=== PATIENT | male | born 1945 | race Caucasian/White ===

== ENCOUNTER 2016-11-01 17:16 | Outpatient (CLI) | payer OTHER, MEDICARE | END 2016-11-01 17:17 | disposition critical access hospital (66) | DX: S01.01XA Laceration without foreign body of scalp, initial encounter (principal); M54.2 Cervicalgia; M54.5 Low back pain; W18.39XA Other fall on same level, initial encounter; Y93.73 Activity, racquet and hand sports; Y92.213 High school as the place of occurrence of the external cause | CPT/HCPCS: A0425; A0429 ==

== ENCOUNTER 2016-11-01 17:32 | Inpatient (IN) | payer MEDICARE, OTHER ==
[2016-11-01] MEDS ORDERED: BUFFERED LIDOCAINE 10 ML SYRINGE SUBQ STA (17:40)
[2016-11-01] MEDS ORDERED: diazePAM INJ 5 MG/ML SYRINGE IM STA (17:40)
--- NOTE | 2016-11-01 17:48 | ED Physician Documentation ---
PD HPI HEAD INJURY - Stated complaint Stated Complaint: HEAD INJ - Chief complaint Chief Complaint: Laceration - History obtained from History obtained from: Patient - History of Present Illness Mechanism of head injury: Fell (He was playing tennis today, his hamstring locked up on him which has been an ongoing issue, and he fell hitting his occiput on a chain link fence with a large laceration there and complains of neck and upper back pain. No other injuries. Tetanus is up-to-date. No loss of consciousness. No anticoagulants.) Review of Systems Ten Systems: 10 systems reviewed and negative Constitutional: denies: Fever, Chills Cardiac: denies: Chest pain / pressure, Palpitations Respiratory: denies: Dyspnea, Cough GI: denies: Abdominal Pain PD PAST MEDICAL HISTORY - Present Medications Home Medications: Ambulatory Orders Medication Instructions Recorded Confirmed Simvastatin 10 mg PO DAILY 11/01/16 11/01/16 raNITIdine [Zantac] 150 mg PO DAILY 11/01/16 11/01/16 traZODone [Desyrel] 150 mg PO DAILY 11/01/16 11/01/16 - Allergies Allergies/Adverse Reactions: Allergies Allergy/AdvReac Type Severity Reaction Status Date / Time No Known Drug Allergies Allergy Verified 11/01/16 17:44 PD ED PE NORMAL - Vitals Vital signs reviewed: Yes - General General: Alert and oriented X 3, No acute distress - HEENT HEENT: PERRL, EOMI, Other (Large occipital laceration, incompletely evaluated on initial evaluation because of C-spine precautions) - Neck Neck: No bony TTP - Cardiac Cardiac: RRR, No murmur - Respiratory Respiratory: No respiratory distress, Clear bilaterally - Abdomen Abdomen: Soft, Non tender - Back Back: No CVA TTP, Other (Some upper T-spine tenderness) - Derm Derm: Normal color, Warm and dry - Extremities Extremities: Other (Tenderness of the left hamstring but good range of motion, NVI) - Neuro Neuro: Alert and oriented X 3, Normal speech - Psych Psych: Normal mood, Normal affect Results - Vitals Vitals: Vital Signs - 24 hr 11/01/16 11/01/16 17:37 20:23 Temperature 36.6 C Heart Rate 64 67 Respiratory 20 18 Rate Blood Pressure 154/81 H 126/73 O2 Saturation 98 96 Oxygen O2 Source Room air - Labs Labs: Laboratory Tests 11/01/16 11/01/16 11/01/16 20:20 20:20 20:20 WBC 13.8 H RBC 4.73 Hgb 13.7 L Hct 40.4 L MCV 85.4 MCH 29.0 MCHC 34.0 RDW 13.2 Plt Count 177 MPV 8.5 Neut # 11.1 H Lymph # 1.3 L [place] # 1.4 H Eos # 0.0 Baso # 0.0 Absolute Nucleated RBC 0.00 Nucleated RBCs 0.0 PT 11.4 INR 1.0 Sodium 142 Potassium 3.7 Chloride 111 Carbon Dioxide 23 Anion Gap 8.0 BUN 22 H Creatinine 1.0 Estimated GFR (MDRD) 74 L Glucose 111 H Calcium 9.1 Total Bilirubin 0.8 AST 33 ALT 35 Alkaline Phosphatase 134 H Total Protein 7.0 Albumin 4.2 Globulin 2.8 Albumin/Globulin Ratio 1.5 Lipase 26 - Rads (name of study) CT head, C-spine, thoracic Spine Radiology: EMP read contemporaneously (Head shows chronic white matter changes, no intracranial hemorrhage. Cervical spine was negative. He does have acute T2 and T3 compression fractures and an acute left posterior medial rib fracture with mild displacement, some pulmonary nodules and follow-up was advised. He does have also left posterior medial second and third rib fractures and us small left apical hemothorax.) Procedures - Laceration (location) Occipital scalp Length in cm: 12 Wound type: Stellate, Irregular, Flap, Into subcut fat Anesthesia: Lidocaine 1%, With bicarb Wound Preparation: Irrigated copiously NS Skin layer closure: [place] Other: Tetanus UTD Complexity: Simple PD MEDICAL DECISION MAKING - ED course ED course: 70-year-old gentleman after ground-level fall with multiple injuries including to thoracic compression fractures, multiple rib fractures, and a large occipital scalp laceration. Initially he very much wanted to go home, but was unable to ambulate and it was difficult to control his pain. Spoke with Dr. Josef Brunson, she is the general surgeon but we both agree there is no general surgical issue, but since its trauma she is available if needed. Spoke with Dr. Alba for observation at 8:30 PM Departure - Departure Disposition: ED Place in Observation Clinical Impression: Compression fx, thoracic spine Qualifiers: Encounter type: initial encounter Fracture type: closed Qualified Code(s): S22.000A - Wedge compression fracture of unspecified thoracic vertebra, initial encounter for closed fracture Multiple rib fractures Qualifiers: Encounter type: initial encounter Fracture type: closed Laterality: bilateral Qualified Code(s): S22.43XA - Multiple fractures of ribs, bilateral, initial encounter for closed fracture Occipital scalp laceration Qualifiers: Encounter type: initial encounter Qualified Code(s): S01.01XA - Laceration without foreign body of scalp, initial encounter Head injury Qualifiers: Encounter type: initial encounter Qualified Code(s): S09.90XA - Unspecified injury of head, initial encounter Condition: Good Record reviewed to determine appropriate education?: Yes Discharge Date/Time: 11/01/16 21:39
[2016-11-01] MEDS ORDERED: LORazepam 2 MG/ML SYRINGE ONE (17:58)
[2016-11-01] MEDS ORDERED: BUFFERED LIDOCAINE 10 ML SYRINGE ONE (17:58)
[2016-11-01] MEDS ORDERED: diazePAM INJ 5 MG/ML SYRINGE ONE (18:07)
--- NOTE | 2016-11-01 18:51 | CT Report ---
EXAM: CT THORACIC SPINE WITHOUT CONTRAST EXAM DATE: 11/01/2016 06:18 PM. CLINICAL HISTORY: Back pain after fall COMPARISONS: None. TECHNIQUE: Thin-section axial images were acquired of the thoracic spine from C7 to L1 without contra st. Post-processing: Coronal and sagittal reformats. Other: None. In accordance with CT protocol optimization, one or more of the following dose reduction techniques w ere utilized for this exam: automated exposure control, adjustment of mA and/or KV based on patient s ize, or use of iterative reconstructive technique. FINDINGS: Alignment: No spondylolisthesis. Bones: Acute T2 and T3 compression fractures involving the superior endplate anterior columns with mi ld compression. Acute left posterior medial first rib fracture, mildly displaced. Acute left posterio r medial second and third rib fractures extending into the costovertebral joints. Small left apex hem othorax associated with the first rib fracture. Minimal biapical paraseptal emphysema, right greater than left. Mild to moderate degenerative disk disease more moderate at the mid and lower levels. Moderate to lar ge osteophytes at the mid and lower thoracic spine. 4 mm right apex pulmonary nodule. More inferior to this is another pulmonary nodule measuring 4 mm in the right upper lobe. IMPRESSION: 1. Acute T2 and T3 compression fractures involving the superior endplate anterior columns with mild c ompression. Acute left posterior medial first rib fracture, mildly displaced. Acute left posterior me dial second and third rib fractures extending into the costovertebral joints. Small left apex hemotho rax associated with the first rib fracture. 2. Couple of tiny right upper lobe pulmonary nodules measuring 4 mm. Recommend a one-year follow-up c hest CT to confirm stability. Otherwise, as above. [facility] Referring Provider Line: [phone] SITE ID: [id number]
--- NOTE | 2016-11-01 18:57 | CT Preliminary Report ---
Exam: CT Cervical Spine W/O IMPRESSION: 1. No evidence for acute fracture in the cervical spine. 2. Mild to moderate degenerative changes. 3. See the abnormal findings in the CT thoracic spine report [facility] SITE ID: [id number]
--- NOTE | 2016-11-01 19:00 | CT Report ---
EXAM: CT CERVICAL SPINE WITHOUT CONTRAST DATE: 11/01/2016 06:09 PM HISTORY: Neck pain after fall. COMPARISONS: None. TECHNIQUE: Thin-section axial images were acquired of the cervical spine without contrast. Post-proce ssing: Coronal and sagittal reformats. Other: None. In accordance with CT protocol optimization, one or more of the following dose reduction techniques w ere utilized for this exam: automated exposure control, adjustment of mA and/or KV based on patient s ize, or use of iterative reconstructive technique. FINDINGS: Alignment: No spondylolisthesis. Mild leftward curve in the cervical spine. Bones: No evidence for acute fracture in the cervical spine. Mild T7 anterior compression deformity a ppears chronic. Interspace Levels/Facets: Mild to moderate degenerative disk disease, most severe at C5-C6 with moder ate disk height loss and osteophytes. Mild to moderate diffuse bilateral facet arthropathy. No acute soft tissue findings IMPRESSION: 1. No evidence for acute fracture in the cervical spine. 2. Mild to moderate degenerative changes. 3. See the abnormal findings in the CT thoracic spine report [facility] Referring Provider Line: [phone] SITE ID: [id number]
--- NOTE | 2016-11-01 19:00 | CT Preliminary Report ---
Exam: CT Head W/O IMPRESSION: 1. No definite acute infarct, intracranial hemorrhage, mass, or hydrocephalus. 2. Mild white matter changes that are age-indeterminate but appear chronic. Findings may represent se quela of chronic small vessel ischemic disease. If there is clinical concern for acute stroke or clin ical symptoms persist an MR brain without contrast can be considered to evaluate for smaller subtle i nfarct. 3. Small to moderate left parietal scalp contusion and laceration with no extension to the calvarium. No calvarial fracture seen. [facility] SITE ID: [id number]
--- NOTE | 2016-11-01 19:03 | CT Report ---
EXAM: CT HEAD EXAM DATE: 11/01/2016 06:05 PM. CLINICAL HISTORY: Head inj. COMPARISON: None. TECHNIQUE: Multiaxial CT images were obtained from the foramen magnum to the vertex. IV contrast: Non e. Reformats: Coronal. In accordance with CT protocol optimization, one or more of the following dose reduction techniques w ere utilized for this exam: automated exposure control, adjustment of mA and/or KV based on patient s ize, or use of iterative reconstructive technique. FINDINGS: Parenchyma: No definite acute parenchymal hemorrhage, mass, or midline shift. There is mild bilateral areas of white matter hepatic attenuation seen that are age-indeterminate but appear chronic. Extraaxial Spaces: Normal for age. No subdural or epidural collections identified. Ventricles: Normal in size and position. Sinuses: Imaged paranasal sinuses, orbits, and mastoids show no significant abnormality. Bones: No evidence of fracture or calvarial defect. Other: Atherosclerotic calcifications cavernous ICA segment. Left parietal scalp contusion laceration with no extension to the calvarium IMPRESSION: 1. No definite acute infarct, intracranial hemorrhage, mass, or hydrocephalus. 2. Mild white matter changes that are age-indeterminate but appear chronic. Findings may represent se quela of chronic small vessel ischemic disease. If there is clinical concern for acute stroke or clin ical symptoms persist an MR brain without contrast can be considered to evaluate for smaller subtle i nfarct. 3. Small to moderate left parietal scalp contusion and laceration with no extension to the calvarium. No calvarial fracture seen. [facility] Referring Provider Line: [phone] SITE ID: [id number]
[2016-11-01] MEDS ORDERED: HYDROmorphone 1 MG/ML SYRINGE IM STA (19:05)
[2016-11-01] MEDS ORDERED: HYDROmorphone 1 MG/ML SYRINGE ONE (19:09)
[2016-11-01] MEDS ORDERED: SODIUM CHLORIDE 0.9% 1,000 ML IV ONE (20:09)
[2016-11-01] MEDS ORDERED: PROCHLORPERAZINE 10 MG/2 ML VIAL IVP PRN (20:35)
[2016-11-01 20:51] LABS: BASOPHILS % (AUTO) 0.2 %; EOSINOPHILS % (AUTO) 0.3 %; HCT - HEMATOCRIT 40.4 % (42.0-52.0); HGB - HEMOGLOBIN 13.7 g/dL (14.0-18.0); LYMPHOCYTES # (AUTO) 1.3 10^3/uL (1.5-3.5); LYMPHOCYTES % (AUTO) 9.1 %; MEAN CORPUSCULAR VOLUME 85.4 fL (80.0-94.0); MEAN PLATELET VOLUME 8.5 fL (7.4-11.4); MONOCYTES # (AUTO) 1.4 10^3/uL (0.0-1.0); NEUTROPHILS # (AUTO) 11.1 10^3/uL (1.5-6.6); NEUTROPHILS % (AUTO) 80.4 %; RED BLOOD COUNT 4.73 10^6/uL (4.70-6.10); RED CELL DISTRIBUTION WIDTH 13.2 % (12.0-15.0); UNCORRECTED WHITE BLOOD COUNT 13.8 x10^3/uL; WHITE BLOOD COUNT 13.8 x10^3/uL (4.8-10.8)
[2016-11-01 20:58] LABS: PT - PROTHROMBIN TIME 11.4 secs (9.9-12.6)
[2016-11-01 21:00] LABS: ALBUMIN/GLOBULIN RATIO 1.5 (1.0-2.2); BILIRUBIN,TOTAL 0.8 mg/dL (0.2-1.0); CALCIUM 9.1 mg/dL (8.5-10.3); POTASSIUM 3.7 mmol/L (3.5-5.0)
[2016-11-01] MEDS ORDERED: BACITRACIN OINT TOP PRN (22:02)
[2016-11-01] MEDS: HYDROmorphone 1 MG/ML SYRINGE IVP PRN (22:20)
[2016-11-01] MEDS: ONDANSETRON 4 MG/2 ML VIAL IVP PRN (22:20)
[2016-11-01] MEDS: SODIUM CHLORIDE FLUSH 0.9% 10 ML SYRINGE IVP SCH (22:22)
--- NOTE | 2016-11-02 00:02 | HISTORY & PHYSICAL EXAMINATION ---
Chief Complaint - Chief Complaint Chief Complaint: fall, bleeding from back of head and neck pain History of Present Illness - Admitted From Admitted From:: emergency department - History Obtained From Records Reviewed: yes History obtained from: patient Exam Limitations: none - History of Present Illness HPI Comment/Other: The patient is a very pleasant 70-year-old gentleman with a past medical history significant for hyperlipidemia and PTSD who presented to the emergency department with a chief complaint of a fall while playing tennis from which she now has a bleeding scalp and neck pain. The patient states that he was playing tennis and was running after her shot when he ran passed the ball and his momentum carried him into a chain length fence into which the fluid headfirst hit his head head on the fence and then fell down chest first on a hard surface. The patient states the moment after the fall are kind of a blur. He states he did not lose consciousness. But he noted that he had blood gushing from his scalp. He also stated that he was in severe pain especially in his neck upper back and chest. He states that while he was chasing down the ball he felt his left hamstring get out. He is also having pain in the left hamstring. The patient denies having had any fevers or chills, he denies any runny nose, sore throat, cough, shortness of air, orthopnea, PND, increased lower extremity swelling, diarrhea, constipation, abdominal pain, nausea, vomiting, or any focal neurologic deficits. The patient does state he has a headache and he states that he has severe pain when he takes a deep breath. He also states that he has pain in the back of his head and neck upper back and his left hamstring. He states the pain is still an 8-9/10. On presentation to the emergency department the patient was afebrile his blood pressure was mildly elevated but he was not in any acute respiratory distress. The patient was brought into the emergency department on a backboard with c- collar. He was bleeding from the back of his head and appeared to be in quite a bit of distress secondary to pain. The patient underwent imaging of his cervical spine head and thoracic spine. CT of the cervical spine revealed no evidence for acute fracture in the cervical spine. CT of the thoracic spine revealed an acute T2 and T3 compression fracture involving the superior endplate anterior columns with mild compression. There was also finding of acute left posterior medial first rib fracture which is mildly displaced. There was also finding of acute left posterior medial second and third rib fractures extending into the costal vertebral joints. Finally there was a finding of a small left apex pneumothorax associated with the first rib fracture. A couple of tiny right upper lobe pulmonary nodules are also seen measuring [address] of his head did not show any intracranial hemorrhage or hydrocephalus. There was a small to moderate left parietal scalp contusion and laceration with no extension to the calvarium. Despite several doses of pain medication the emergency department the patient's pain was not controlled and the patient was unable to get up out of bed secondary to all of his fractures and pain therefore he was placed in observation for pain control. Review of Systems - Constitutional Constitutional: denies: Fatigue, Fever, Chills, Malaise, Weakness, Poor appetite , Diaphoresis, Night sweats, Weight gain, Weight loss - Eyes Eyes: denies: Pain, Irritation, Amaurosis, Blurred vision, Field loss, Vision loss, Dipolpia - Ears, Nose & Throat Ears, Nose & Throat: reports: Nasal congestion. denies: Ear pain, Hearing loss , Hearing aids, Tinnitus, Vertigo, Nasal pain, Nasal discharge, Nosebleeds, Nasal obstruction, Postnasal drainage, Dentures, Sore throat, Hoarseness, Mouth lesions, Bleeding gums, Dental pain - Cardiovascular Cariovascular: denies: Irregular heart rate, Palpitations, Chest pain, Edema, Lightheadedness, Syncope, Exertional dyspnea, Decr. exercise tolerance, Orthopnea - Respiratory Respiratory: reports: Pleuritic pain. denies: Cough, Sputum production, Wheezing, Snoring, Hemoptysis, Orthopnea, SOB at rest, SOB with exertion, Apnea , Stridor - Gastrointestinal Gastrointestinal: denies: Abdominal pain, Abdominal distention, Constipation, Diarrhea, Change in bowel habits, Rectal bleeding, Black stools, Bloody stools, Nausea, Vomiting, Bile emesis, Collin blood emesis, Coffee grounds emesis, Reflux /heartburn, Bloating, Poor appetite - Genitourinary Genitourinary: denies: Dysuria, Frequency, Urgency, Hematuria, Flank pain - Musculoskeletal Musculoskeletal: reports: Muscle pain (left hamstring), Back pain (neck and upper back), Stiffness, Other (Neck pain) - Integumentary Integumentary: denies: Rash, Pruritis, Lesions, Dryness, Nail changes - Neurological Neurological: reports: Headache. denies: General weakness, Focal weakness, Dizziness, Numbness, Abnormal gait, Seizures, Slurred speech - Psychiatric Psychiatric: denies: Depression, Anxiety - Endocrine Endocrine: denies: Polyuria, Polydypsia, Polyphagia, Intolerance to cold, Intolerance to heat History - Past Medical History Cardiovascular: reports: High cholesterol Respiratory: reports: None Neuro: reports: None Endocrine/Autoimmune: reports: None GI: reports: None GO GO DANCER: reports: None : reports: None HEENT: reports: Chronic sinusitis Psych: reports: Post traumatic stress disorder Musculoskeletal: reports: None Derm: reports: None MRSA Hx?: No Other Past Medical History: 1. Hyperlipidemia. 2. PTSD - Past Surgical History Ortho: reports: Rotator cuff repair, Other - Family & Social History Family History: Mother: (Mom lived to and of old age), Father: , Cancer (Dad: Prostate Ca, Maternal GF: Lung Ca), Renal Disease/Failure , Other family: Cancer Family History Comment/Other: Patient's father had prostate cancer and kidney failure. Patient's mother lived to be 95 and of old age. His mother was otherwise healthy. Patient's maternal grandfather had lung cancer and in his 30s. Living arrangement: At home Living Situation: With spouse/s.o. Social History Notes: The patient was born in [facility]. He joined the [employer] and moved throughout the country he spent a lot of time in [place] which is where he met his . They now live and [place] and have 2 daughters who are living in [place]. The patient is retired. He is very active as he plays pickle ball and tennis. The patient was previously a smoker he quit 10 years ago he smoked one pack per day for 40 years. The patient drinks 2-3 Robin Zaidi drinks a night. Patient does use recreational marijuana. - Substance History Use: Uses substance without health or social issues: Alcohol, Cannabis Abuse: Recurrent use of substance despite neg consequences: NONE Dependence: Experiences withdrawal or developed tolerances: NONE - POLST Patient has POLST: No POLST Status: Full Code Meds/Allgy - Home Medications Home Medications: Ambulatory Orders Medication Instructions Recorded Confirmed Simvastatin 10 mg PO DAILY 11/01/16 11/01/16 raNITIdine [Zantac] 150 mg PO DAILY 11/01/16 11/01/16 traZODone [Desyrel] 150 mg PO DAILY 11/01/16 11/01/16 - Allergies Allergies/Adverse Reactions: Allergies Allergy/AdvReac Type Severity Reaction Status Date / Time No Known Drug Allergies Allergy Verified 11/01/16 17:44 Exam - Vital Signs Reviewed Vital Signs: Yes Vital Signs: Vital Signs x48h Temp Pulse Resp BP Pulse Ox 11/01/16 22:00 36.6 C 94 18 150/95 H 94 - Physical Exam General Appearance: positive: Alert, Moderate distress (Severe pain in the back and neck with any movements. Headache, patient is miserable.) Eyes Bilateral: positive: Normal inspection, PERRL, EOMI, No lid inflammation, Conjunctivae nml, No scleral icterus ENT: positive: ENT inspection nml, Pharynx nml, No signs of dehydration. negative: Purulent nasal drainage, Pharyngeal erythema, Oral lesions Neck: positive: Nml inspection, Thyroid nml, No JVD, Trachea midline, Stiff neck. negative: Thyromegaly, Lymphadenopathy (R), Lymphadenopathy (L), Tracheal deviation Respiratory: positive: Chest non-tender, No respiratory distress, Other (Pain with deep breathing, mild crackles at the bases.) Cardiovascular: positive: Regular rate & rhythm, No murmur, No gallop Peripheral Pulses: positive: 2+ Abdomen: positive: Non-tender, No organomegaly, Nml bowel sounds, No distention. negative: Guarding, Rebound, Hepatomegaly Back: positive: Other (Paraspinal muscles with spasm, tenderness to palpation of the thoracic spine.). negative: CVA tenderness (R), CVA tenderness (L) Skin: positive: Warm, Laceration (cm) (back of head with jairo. Large occiptal scalp lacertaion now closed up.). negative: Cyanosis, Pallor Extremities: positive: Full ROM, Nml appearance, No pedal edema, Other (Left hamstring very painful with ROM). negative: Joint swelling Neurologic/Psychiatric: positive: Oriented x3, CN's nml (2-12), Motor nml, Sensation nml, Mood/affect nml Conclusion/Plan - Problem List (1) Compression fx, thoracic spine Conclusion/Plan: Acute T2 and T3 compression fractures secondary to trauma Stable do not require brace or surgery Patient in severe pain which is uncontrolled despite IV pain medications Patient unable to move out of the bed Secondary to trauma while falling into fence playing tennis Plan: Pain control with IV pain meds PT evaluation Qualifiers: Encounter type: initial encounter Fracture type: closed Qualified Code(s) : S22.000A - Wedge compression fracture of unspecified thoracic vertebra, initial encounter for closed fracture (2) Multiple rib fractures Conclusion/Plan: Acute left posterior medial 1st rib fx with mild displacement, acute left posterior medial second and third rib fx extending to the costovertebral joints. Secondary to trauma from fall Pain uncontrolled Plan: IV pain control with dilaudid Transition to PO meds once able to tolerate pain better IS to prevent pneumonia Qualifiers: Encounter type: initial encounter Fracture type: closed Laterality: bilateral Qualified Code(s): S22.43XA - Multiple fractures of ribs, bilateral , initial encounter for closed fracture (3) Occipital scalp laceration Conclusion/Plan: Secondary to trauma s/p jairo in the ER with closing of laceration and stopping of bleeding Patient has headache but stable Will need to remove jairo as outpatient Qualifiers: Encounter type: initial encounter Qualified Code(s): S01.01XA - Laceration without foreign body of scalp, initial encounter (4) Hemothorax on left Conclusion/Plan: Small left apex hemothorax seen on CT secondary to trauma from fall Plan: Monitor respiratory status overnight CXR in the am to evaluate if it has gotten any worse (5) Pulmonary nodule, left Conclusion/Plan: Patient had found to have incidental right upper lobe pulmonary nodules measuring 4mm Follow up CT recommended in 1 year (6) Hyperlipidemia Conclusion/Plan: Continue statin Stable (7) PTSD (post-traumatic stress disorder) Conclusion/Plan: Patient takes trazadone at night Will get ambien while hospitalized (8) Prophylactic use of low molecular weight heparin for venous thromboembolism Conclusion/Plan: Placed on lovenox while hospitalized - Lab Results Lab results reviewed: Yes Fish Bones: 11/01/16 20:20 11/01/16 20:20 Other Lab Results: Laboratory Results WBC 13.8 x10^3/uL (4.8-10.8) H 11/01/16 20:20 RBC 4.73 10^6/uL (4.70-6.10) 11/01/16 20:20 Hgb 13.7 g/dL (14.0-18.0) L 11/01/16 20:20 Hct 40.4 % (42.0-52.0) L 11/01/16 20:20 MCV 85.4 fL (80.0-94.0) 11/01/16 20:20 MCH 29.0 pg (27.0-31.0) 11/01/16 20:20 MCHC 34.0 g/dL (32.0-36.0) 11/01/16 20:20 RDW 13.2 % (12.0-15.0) 11/01/16 20:20 Plt Count 177 10^3/uL (130-450) 11/01/16 20:20 MPV 8.5 fL (7.4-11.4) 11/01/16 20:20 Neut # 11.1 10^3/uL (1.5-6.6) H 11/01/16 20:20 Lymph # 1.3 10^3/uL (1.5-3.5) L 11/01/16 20:20 [place] # 1.4 10^3/uL (0.0-1.0) H 11/01/16 20:20 Eos # 0.0 10^3/uL (0.0-0.7) 11/01/16 20:20 Baso # 0.0 10^3/uL (0.0-0.1) 11/01/16 20:20 Absolute Nucleated RBC 0.00 x10^3/uL 11/01/16 20:20 Nucleated RBCs 0.0 /100WBC 11/01/16 20:20 PT 11.4 secs (9.9-12.6) 11/01/16 20:20 INR 1.0 (0.8-1.2) 11/01/16 20:20 Sodium 142 mmol/L (135-145) 11/01/16 20:20 Potassium 3.7 mmol/L (3.5-5.0) 11/01/16 20:20 Chloride 111 mmol/L (101-111) 11/01/16 20:20 Carbon Dioxide 23 mmol/L (21-32) 11/01/16 20:20 Anion Gap 8.0 (6-13) 11/01/16 20:20 BUN 22 mg/dL (6-20) H 11/01/16 20:20 Creatinine 1.0 mg/dL (0.6-1.2) 11/01/16 20:20 Estimated GFR (MDRD) 74 (>89) L 11/01/16 20:20 Glucose 111 mg/dL (70-100) H 11/01/16 20:20 Calcium 9.1 mg/dL (8.5-10.3) 11/01/16 20:20 Total Bilirubin 0.8 mg/dL (0.2-1.0) 11/01/16 20:20 AST 33 IU/L (10-42) 11/01/16 20:20 ALT 35 IU/L (10-60) 11/01/16 20:20 Alkaline Phosphatase 134 IU/L (42-121) H 11/01/16 20:20 Total Protein 7.0 g/dL (6.7-8.2) 11/01/16 20:20 Albumin 4.2 g/dL (3.2-5.5) 11/01/16 20:20 Globulin 2.8 g/dL (2.1-4.2) 11/01/16 20:20 Albumin/Globulin Ratio 1.5 (1.0-2.2) 11/01/16 20:20 Lipase 26 U/L (22-51) 11/01/16 20:20 - Diagnostic Imaging Results Diagnostic Imaging Results: positive: Final report reviewed Issues/Core Measures - Anticipated LOS Anticipated Stay Length: Less than 2 midnights - DVT/VTE - Prophylaxis VTE/DVT Prophylaxis med ordered at admit?: Yes
[2016-11-02] MEDS: oxyCODONE 5 MG TABLET PO PRN ×6 (00:20→20:53)
[2016-11-02] MEDS: ZOLPIDEM 5 MG TABLET PO PRN (00:20)
[2016-11-02] MEDS: SODIUM CHLORIDE FLUSH 0.9% 10 ML SYRINGE IVP SCH ×3 (05:53→18:16)
[2016-11-02] MEDS: PANTOPRAZOLE 40 MG TABLET PO SCH (06:01)
[2016-11-02] MEDS: HYDROmorphone 1 MG/ML SYRINGE IVP PRN (07:28)
[2016-11-02] MEDS: ONDANSETRON 4 MG/2 ML VIAL IVP PRN (07:33)
[2016-11-02 07:56] LABS: BASOPHILS % (AUTO) 0.4 %; EOSINOPHILS % (AUTO) 0.4 %; HCT - HEMATOCRIT 37.7 % (42.0-52.0); HGB - HEMOGLOBIN 12.8 g/dL (14.0-18.0); LYMPHOCYTES # (AUTO) 1.6 10^3/uL (1.5-3.5); LYMPHOCYTES % (AUTO) 14.4 %; MEAN CORPUSCULAR HEMOGLOBIN 28.9 pg (27.0-31.0); MEAN CORPUSCULAR HGB CONC 34.1 g/dL (32.0-36.0); MONOCYTES # (AUTO) 1.6 10^3/uL (0.0-1.0); NEUTROPHILS # (AUTO) 8.1 10^3/uL (1.5-6.6); NEUTROPHILS % (AUTO) 70.8 %; NUCLEATED RED BLOOD CELLS AUTO 0.1 /100WBC; RED BLOOD COUNT 4.43 10^6/uL (4.70-6.10); RED CELL DISTRIBUTION WIDTH 13.5 % (12.0-15.0); UNCORRECTED WHITE BLOOD COUNT 11.4 x10^3/uL; WHITE BLOOD COUNT 11.4 x10^3/uL (4.8-10.8)
[2016-11-02 08:09] LABS: ALBUMIN/GLOBULIN RATIO 1.3 (1.0-2.2); BILIRUBIN,TOTAL 0.8 mg/dL (0.2-1.0); CALCIUM 8.5 mg/dL (8.5-10.3); CREATININE 0.9 mg/dL (0.6-1.2); POTASSIUM 3.9 mmol/L (3.5-5.0); TOTAL PROTEIN 6.6 g/dL (6.7-8.2)
[2016-11-02] MEDS: IBUPROFEN 600 MG TABLET PO PRN ×3 (08:12→20:54)
[2016-11-02] MEDS: ACETAMINOPHEN 325 MG TABLET PO PRN ×2 (08:13→13:10)
[2016-11-02] MEDS: POLYETHYLENE GLYCOL 3350 17 GM PACKET PO SCH (08:14)
[2016-11-02] MEDS: ENOXAPARIN 40 MG/0.4 ML SYRINGE SUBQ SCH (08:15)
--- NOTE | 2016-11-02 10:57 | PROVIDER PROGRESS NOTE ---
Assessment/Plan - Problem List (1) Compression fx, thoracic spine Qualifiers: Encounter type: initial encounter Fracture type: closed Qualified Code(s) : S22.000A - Wedge compression fracture of unspecified thoracic vertebra, initial encounter for closed fracture Assessment/Plan: Arvin is having a lot of pain from his multiple injuries. His t spine fratures increase his issues with cough and deep inspiration incrteasing his risk of pneumonia. Also contributes to his pain burden. (2) Hemothorax on left Assessment/Plan: This a small apical lesion CXR is pending for the repeat to see if it has increased. No decrease in breath sounds and no respiratory distress. (3) Multiple rib fractures Qualifiers: Encounter type: initial encounter Fracture type: closed Laterality: bilateral Qualified Code(s): S22.43XA - Multiple fractures of ribs, bilateral , initial encounter for closed fracture Assessment/Plan: The three rib fractures increase his complication rate and will also be monitored and will mobilize the patient. - Current Meds Current Meds: Current Medications Generic Name Dose Route Start Last Admin Trade Name Freq PRN Reason Stop Dose Admin Acetaminophen 650 mg 11/01/16 20:35 11/02/16 08:13 Tylenol PO 650 mg Q4HR PRN Administration Pain 1 to 4 Bacitracin 1 packet 11/01/16 22:02 11/01/16 22:50 Bacitracin TOP 3 packet PRN PRN Administration Skin Care Enoxaparin Sodium 40 mg 11/02/16 09:00 11/02/16 08:15 Lovenox SUBQ 40 mg DAILY DALTON Administration Hydromorphone HCl 1 mg 11/01/16 20:35 11/02/16 07:28 Dilaudid Inj IVP 1 mg Q2HR PRN Administration Pain 8 to 10 Ibuprofen 600 mg 11/01/16 20:35 11/02/16 08:12 Motrin PO 600 mg Q6HR PRN Administration Pain 1 to 4 Ondansetron HCl 4 mg 11/01/16 20:35 11/02/16 07:33 Zofran Inj IVP 4 mg Q6HR PRN Administration Nausea / Vomiting Oxycodone HCl 5 mg 11/01/16 20:35 11/02/16 06:01 Roxicodone PO 5 mg Q4HR PRN Administration Pain 5 to 7 Oxycodone HCl 10 mg 11/01/16 20:35 11/02/16 08:13 Roxicodone PO 10 mg Q4HR PRN Administration Pain 8 to 10 Pantoprazole Sodium 40 mg 11/02/16 07:00 11/02/16 06:01 Protonix PO 40 mg QDAC DALTON Administration Polyethylene Glycol 17 gm 11/02/16 09:00 11/02/16 08:14 Miralax PO 17 gm DAILY DALTON Administration Sodium Chloride 10 ml 11/01/16 22:00 11/02/16 07:29 Normal Saline Flush 0.9% IVP 40 ml Q8HR DALTON Administration Zolpidem Tartrate 5 mg 11/01/16 20:35 11/02/16 00:20 Ambien PO 5 mg QPM PRN Administration Insomnia - Lab Result Fish Bone Diagrams: 11/02/16 07:52 11/02/16 07:52 - Additional Planning My Orders: My Active Orders 11/02/16 General Surgery Consult [CONS] Routine 11/02/16 10:51 Admit \ Transfer \ Status [RC] ONCE 11/02/16 21:00 Atorvastatin [Lipitor] 10 mg PO QPM traZODone [Desyrel] 150 mg PO QPM 11/03/16 05:00 CBC - COMP BLD CT W/AUTO DIFF [HEME] DAILYLAB COMPREHENSIVE METABOLIC PANEL [CHEM] DAILYLAB Subjective - Subjective Patient Reports: Back Pain, Nausea, Pain Nursing Reports: Pain Objective Vital Signs: Vital Signs - 24 hr 11/01/16 11/02/16 11/02/16 22:00 00:31 05:32 Temperature 36.6 C 36.5 C 36.6 C Heart Rate [ 94 66 63 Brachial] Respiratory 18 18 18 Rate Blood Pressure 150/95 H 137/87 H 142/80 H [Right Brachial artery] O2 Saturation 94 96 96 11/02/16 07:49 Temperature 36.7 C Heart Rate [ 67 Brachial] Respiratory 18 Rate Blood Pressure 125/77 [Right Brachial artery] O2 Saturation 95 Oxygen O2 Source Room air I&O (Last 24 Hrs): Intake and Output Totals x24h 10/31/16 11/01/16 11/02/16 23:59 23:59 23:59 Intake Total 1097 Output Total 400 500 Balance -400 597 General: Alert, Oriented x3, Cooperative HEENT: PERRLA, EOMI Neck: No thyromegaly Neuro: Alert, Oriented Times 3 Cardiovascular: Regular rate, No murmurs Respiratory: Breath sounds nml Abdomen: Soft, No tenderness Extremities: No clubbing, No cyanosis, No edema - Results Results: Laboratory Results WBC 11.4 x10^3/uL (4.8-10.8) H 11/02/16 07:52 RBC 4.43 10^6/uL (4.70-6.10) L 11/02/16 07:52 Hgb 12.8 g/dL (14.0-18.0) L 11/02/16 07:52 Hct 37.7 % (42.0-52.0) L 11/02/16 07:52 MCV 85.0 fL (80.0-94.0) 11/02/16 07:52 MCH 28.9 pg (27.0-31.0) 11/02/16 07:52 MCHC 34.1 g/dL (32.0-36.0) 11/02/16 07:52 RDW 13.5 % (12.0-15.0) 11/02/16 07:52 Plt Count 162 10^3/uL (130-450) 11/02/16 07:52 MPV 8.0 fL (7.4-11.4) 11/02/16 07:52 Neut # 8.1 10^3/uL (1.5-6.6) H 11/02/16 07:52 Lymph # 1.6 10^3/uL (1.5-3.5) 11/02/16 07:52 [place] # 1.6 10^3/uL (0.0-1.0) H 11/02/16 07:52 Eos # 0.0 10^3/uL (0.0-0.7) 11/02/16 07:52 Baso # 0.0 10^3/uL (0.0-0.1) 11/02/16 07:52 Absolute Nucleated RBC 0.01 x10^3/uL 11/02/16 07:52 Nucleated RBCs 0.1 /100WBC 11/02/16 07:52 PT 11.4 secs (9.9-12.6) 11/01/16 20:20 INR 1.0 (0.8-1.2) 11/01/16 20:20 Sodium 139 mmol/L (135-145) 11/02/16 07:52 Potassium 3.9 mmol/L (3.5-5.0) 11/02/16 07:52 Chloride 109 mmol/L (101-111) 11/02/16 07:52 Carbon Dioxide 24 mmol/L (21-32) 11/02/16 07:52 Anion Gap 6.0 (6-13) 11/02/16 07:52 BUN 20 mg/dL (6-20) 11/02/16 07:52 Creatinine 0.9 mg/dL (0.6-1.2) 11/02/16 07:52 Estimated GFR (MDRD) 84 (>89) L 11/02/16 07:52 Glucose 127 mg/dL (70-100) H 11/02/16 07:52 Calcium 8.5 mg/dL (8.5-10.3) 11/02/16 07:52 Total Bilirubin 0.8 mg/dL (0.2-1.0) 11/02/16 07:52 AST 32 IU/L (10-42) 11/02/16 07:52 ALT 32 IU/L (10-60) 11/02/16 07:52 Alkaline Phosphatase 116 IU/L (42-121) 11/02/16 07:52 Total Protein 6.6 g/dL (6.7-8.2) L 11/02/16 07:52 Albumin 3.7 g/dL (3.2-5.5) 11/02/16 07:52 Globulin 2.9 g/dL (2.1-4.2) 11/02/16 07:52 Albumin/Globulin Ratio 1.3 (1.0-2.2) 11/02/16 07:52 Lipase 26 U/L (22-51) 11/01/16 20:20
--- NOTE | 2016-11-02 11:12 | CONSULTATION NOTE ---
Surgery Consult - Admit Date Hospital Admission Date: 11/02/16 - Consult Date Consult Date: 11/02/16 Requesting Provider: Dr. Wyman - Home Meds/Allergies Home Medications: Patient History Medication Instructions Recorded Confirmed Simvastatin 10 mg PO QPM 11/01/16 11/02/16 raNITIdine [Zantac] 150 mg PO DAILY 11/01/16 11/01/16 traZODone [Desyrel] 150 mg PO QPM 11/01/16 11/02/16 Allergies/Adverse Reactions: Allergies Allergy/AdvReac Type Severity Reaction Status Date / Time No Known Drug Allergies Allergy Verified 11/01/16 17:44 - Consultation Note Consultation Note: 70y/o man fell while playing tennis after hamstring "went out" hitting head on chain link fence and landing on his chest. He sustained a scalp laceration; acute compression fractures to T2 and T3; L posterior 2nd and 3rd rib fractures and a small hemothorax (an old C7 compression fracture was also seen on CT). There was no loss of conciousness and he has been alert and oriented during admission. He complains of significant pain especially with coughing. I reinforced the importance of doing the breathing exercises and of deep breathing and coughing. I also reinforced the importance of not staying in bed , but getting up and moving around. PMH: PTSD; hyperlipidemia PSH: Rotator cuff repair Soc Hx: quit smoking 10yrs ago; 2-3 drinks/night Vital Signs 11/02/16 11/02/16 11/02/16 05:32 07:49 12:01 Temperature 36.6 C 36.7 C 36.5 C Heart Rate [ 63 67 61 Brachial] Respiratory 18 18 16 Rate Blood Pressure 142/80 H 125/77 104/59 L [Right Brachial artery] O2 Saturation 96 95 94 PE: Gen: Pleasant; cooperative; no acute distress HEENT: scalp lac with jairo intact, no active bleeding; EOMI Neck: supple, no JVD Lungs: CTA B; good lung expansion; L chest wall is tender Abd: soft; benign Ext: L hamstring area tender but not markedly swollen; normal ROM Neuro: A&Ox3; no focal deficits A/P: Truamatic injury from fall with T2 & T3 compression fx; L 2nd & 3rd rib fx ; small hemothorax Agressive pulmonary toilet. I've increased the ordered frequency of IS and added acapella flutter valve. Out of bed as much as possible, PT is seeing him now and has brought him a walker. May need ortho eval of hamstring injury which can be done as an outpt. Should be instructed to continue IS and acapella at home when d/cd along with mobilization. Can f/u with surgery for removal of jairo from scalp lac.
--- NOTE | 2016-11-02 11:16 | XRAY Preliminary Report ---
Exam: XR Chest 2 View PA/LAT IMPRESSION: Clear lungs. [facility] SITE ID: [id number]
--- NOTE | 2016-11-02 11:19 | XRAY Report ---
EXAM: CHEST RADIOGRAPHY EXAM DATE: 11/02/2016 10:29 AM. CLINICAL HISTORY: Hemothorax. COMPARISON: None. TECHNIQUE: 2 views. FINDINGS: Lungs/Pleura: The lungs are grossly clear. No focal opacities evident. No pleural effusion. No pneumo thorax. Normal volumes. Mediastinum: Heart and mediastinal contours are accentuated by the lordotic projection. Other: Multilevel degenerative changes in the thoracic spine. IMPRESSION: Clear lungs. [facility] Referring Provider Line: [phone] SITE ID: [id number]
[2016-11-02] MEDS ORDERED: ACETAMINOPHEN 1,000 MG/100 ML 100 ML IV SCH ×2 (14:00→17:00)
[2016-11-02] MEDS: diazePAM 5 MG TABLET PO PRN (16:08)
[2016-11-02] MEDS: ACETAMINOPHEN 1,000 MG/100 ML 100 ML IV SCH (18:16)
[2016-11-02] MEDS: MAGNESIUM OXIDE 400 MG TABLET PO SCH (20:54)
[2016-11-02] MEDS: traZODone 50 MG TABLET PO SCH (20:54)
[2016-11-02] MEDS: ATORVASTATIN 10 MG TABLET PO SCH (20:54)
[2016-11-03] MEDS: ACETAMINOPHEN 1,000 MG/100 ML 100 ML IV SCH ×4 (00:07→18:39)
[2016-11-03] MEDS: SODIUM CHLORIDE FLUSH 0.9% 10 ML SYRINGE IVP SCH ×3 (05:19→22:55)
[2016-11-03 05:45] LABS: BASOPHILS % (AUTO) 0.4 %; EOSINOPHILS # (AUTO) 0.3 10^3/uL (0.0-0.7); EOSINOPHILS % (AUTO) 3.2 %; HCT - HEMATOCRIT 37.6 % (42.0-52.0); HGB - HEMOGLOBIN 12.8 g/dL (14.0-18.0); LYMPHOCYTES # (AUTO) 1.9 10^3/uL (1.5-3.5); LYMPHOCYTES % (AUTO) 19.8 %; MEAN CORPUSCULAR HEMOGLOBIN 29.3 pg (27.0-31.0); MEAN CORPUSCULAR HGB CONC 33.9 g/dL (32.0-36.0); MEAN CORPUSCULAR VOLUME 86.6 fL (80.0-94.0); MEAN PLATELET VOLUME 8.5 fL (7.4-11.4); MONOCYTES # (AUTO) 1.5 10^3/uL (0.0-1.0); MONOCYTES % (AUTO) 15.8 %; NEUTROPHILS # (AUTO) 5.8 10^3/uL (1.5-6.6); NEUTROPHILS % (AUTO) 60.8 %; RED BLOOD COUNT 4.35 10^6/uL (4.70-6.10); RED CELL DISTRIBUTION WIDTH 13.7 % (12.0-15.0); UNCORRECTED WHITE BLOOD COUNT 9.6 x10^3/uL; WHITE BLOOD COUNT 9.6 x10^3/uL (4.8-10.8)
[2016-11-03 05:55] LABS: ALBUMIN/GLOBULIN RATIO 1.2 (1.0-2.2); BILIRUBIN,TOTAL 0.6 mg/dL (0.2-1.0); CALCIUM 8.3 mg/dL (8.5-10.3); POTASSIUM 3.5 mmol/L (3.5-5.0)
[2016-11-03] MEDS: PANTOPRAZOLE 40 MG TABLET PO SCH (06:00)
[2016-11-03] MEDS: oxyCODONE 5 MG TABLET PO PRN ×5 (06:08→22:54)
[2016-11-03] MEDS: diazePAM 5 MG TABLET PO PRN ×3 (07:34→21:07)
--- NOTE | 2016-11-03 08:42 | PROVIDER PROGRESS NOTE ---
Assessment/Plan - Problem List (1) Compression fx, thoracic spine Qualifiers: Encounter type: initial encounter Fracture type: closed Qualified Code(s) : S22.000A - Wedge compression fracture of unspecified thoracic vertebra, initial encounter for closed fracture Assessment/Plan: Arvin is having a lot of pain all over but especially his back and chest and L leg. He slept some and the valium is helping some of the spasms. Overall he needs more PT and movement to be able to get him discharged. (2) Hemothorax on left Assessment/Plan: No evidence of hemo thorax on CXR yesterday and no pneumionia. He is using the IS and the pickle. (3) Multiple rib fractures Qualifiers: Encounter type: initial encounter Fracture type: closed Laterality: bilateral Qualified Code(s): S22.43XA - Multiple fractures of ribs, bilateral , initial encounter for closed fracture Assessment/Plan: He has the pain noted above and it is affecting his mobility but not his ventilation. - Current Meds Current Meds: Current Medications Generic Name Dose Route Start Last Admin Trade Name Freq PRN Reason Stop Dose Admin Atorvastatin Calcium 10 mg 11/02/16 21:00 11/02/16 20:54 Lipitor PO 10 mg QPM DALTON Administration Bacitracin 1 packet 11/01/16 22:02 11/01/16 22:50 Bacitracin TOP 3 packet PRN PRN Administration Skin Care Diazepam 5 mg 11/01/16 20:35 11/03/16 07:34 Valium PO 5 mg Q6H PRN Administration Muscle spasms Enoxaparin Sodium 40 mg 11/02/16 09:00 11/02/16 08:15 Lovenox SUBQ 40 mg DAILY DALTON Administration Hydromorphone HCl 1 mg 11/01/16 20:35 11/02/16 07:28 Dilaudid Inj IVP 1 mg Q2HR PRN Administration Pain 8 to 10 Acetaminophen 100 mls @ 400 mls/hr 11/02/16 18:00 11/03/16 06:00 Ofirmev IV 400 mls/hr Q6H DALTON Administration Ibuprofen 600 mg 11/01/16 20:35 11/02/16 20:54 Motrin PO 600 mg Q6HR PRN Administration Pain 1 to 4 Magnesium Oxide 400 mg 11/02/16 21:00 11/02/16 20:54 Mag Ox PO 400 mg BID DALTON Administration Ondansetron HCl 4 mg 11/01/16 20:35 11/02/16 07:33 Zofran Inj IVP 4 mg Q6HR PRN Administration Nausea / Vomiting Oxycodone HCl 5 mg 11/01/16 20:35 11/02/16 13:11 Roxicodone PO 5 mg Q4HR PRN Administration Pain 5 to 7 Oxycodone HCl 10 mg 11/01/16 20:35 11/03/16 06:08 Roxicodone PO 10 mg Q4HR PRN Administration Pain 8 to 10 Pantoprazole Sodium 40 mg 11/02/16 07:00 11/03/16 06:00 Protonix PO 40 mg QDAC DALTON Administration Polyethylene Glycol 17 gm 11/02/16 09:00 11/02/16 08:14 Miralax PO 17 gm DAILY DALTON Administration Sodium Chloride 10 ml 11/01/16 22:00 11/03/16 05:19 Normal Saline Flush 0.9% IVP Not Given Q8HR DALTON Trazodone HCl 150 mg 11/02/16 21:00 11/02/16 20:54 Desyrel PO 150 mg QPM DALTON Administration Zolpidem Tartrate 5 mg 11/01/16 20:35 11/02/16 00:20 Ambien PO 5 mg QPM PRN Administration Insomnia - Lab Result Fish Bone Diagrams: 11/03/16 05:18 11/03/16 05:18 - Additional Planning My Orders: My Active Orders 11/02/16 18:00 Acetaminophen 1,000 mg/100 ml [Ofirmev] 100 ml IV Q6H 11/02/16 21:00 Magnesium Oxide [Mag Ox] 400 mg PO BID Subjective - Subjective Patient Reports: Back Pain, Pain Nursing Reports: Pain Objective Vital Signs: Vital Signs - 24 hr 11/02/16 11/02/16 11/02/16 12:01 15:30 19:40 Temperature 36.5 C 36.7 C 36.6 C Heart Rate [ 61 59 L 61 Brachial] Respiratory 16 18 18 Rate Blood Pressure [Left Brachial artery] Blood Pressure 104/59 L 124/72 120/75 [Right Brachial artery] O2 Saturation 94 98 98 11/03/16 11/03/16 11/03/16 00:02 05:15 07:52 Temperature 36.6 C 36.6 C 36.7 C Heart Rate [ 60 59 L 57 L Brachial] Respiratory 16 16 18 Rate Blood Pressure 113/66 137/78 H 148/84 H [Left Brachial artery] Blood Pressure [Right Brachial artery] O2 Saturation 92 97 100 Oxygen O2 Source Room air I&O (Last 24 Hrs): Intake and Output Totals x24h 11/01/16 11/02/16 11/03/16 23:59 23:59 23:59 Intake Total 1170 100 Output Total 360 950 Balance 810 -850 General: Alert, Oriented x3, Cooperative HEENT: PERRLA, EOMI Neck: No JVD, No thyromegaly Neuro: Alert, Oriented Times 3 Cardiovascular: Regular rate, No murmurs Respiratory: Chest non-tender, No respiratory distress, Breath sounds nml Abdomen: Normal bowel sounds, Soft, No tenderness Extremities: No clubbing, No cyanosis, No edema, Other (He has tenderness at he orgin of the biceps femoralis.) - Results Results: Laboratory Results WBC 9.6 x10^3/uL (4.8-10.8) 11/03/16 05:18 RBC 4.35 10^6/uL (4.70-6.10) L 11/03/16 05:18 Hgb 12.8 g/dL (14.0-18.0) L 11/03/16 05:18 Hct 37.6 % (42.0-52.0) L 11/03/16 05:18 MCV 86.6 fL (80.0-94.0) 11/03/16 05:18 MCH 29.3 pg (27.0-31.0) 11/03/16 05:18 MCHC 33.9 g/dL (32.0-36.0) 11/03/16 05:18 RDW 13.7 % (12.0-15.0) 11/03/16 05:18 Plt Count 150 10^3/uL (130-450) 11/03/16 05:18 MPV 8.5 fL (7.4-11.4) 11/03/16 05:18 Neut # 5.8 10^3/uL (1.5-6.6) 11/03/16 05:18 Lymph # 1.9 10^3/uL (1.5-3.5) 11/03/16 05:18 [place] # 1.5 10^3/uL (0.0-1.0) H 11/03/16 05:18 Eos # 0.3 10^3/uL (0.0-0.7) 11/03/16 05:18 Baso # 0.0 10^3/uL (0.0-0.1) 11/03/16 05:18 Absolute Nucleated RBC 0.00 x10^3/uL 11/03/16 05:18 Nucleated RBCs 0.0 /100WBC 11/03/16 05:18 PT 11.4 secs (9.9-12.6) 11/01/16 20:20 INR 1.0 (0.8-1.2) 11/01/16 20:20 Sodium 140 mmol/L (135-145) 11/03/16 05:18 Potassium 3.5 mmol/L (3.5-5.0) 11/03/16 05:18 Chloride 108 mmol/L (101-111) 11/03/16 05:18 Carbon Dioxide 27 mmol/L (21-32) 11/03/16 05:18 Anion Gap 5.0 (6-13) L 11/03/16 05:18 BUN 21 mg/dL (6-20) H 11/03/16 05:18 Creatinine 1.0 mg/dL (0.6-1.2) 11/03/16 05:18 Estimated GFR (MDRD) 74 (>89) L 11/03/16 05:18 Glucose 127 mg/dL (70-100) H 11/03/16 05:18 Calcium 8.3 mg/dL (8.5-10.3) L 11/03/16 05:18 Total Bilirubin 0.6 mg/dL (0.2-1.0) 11/03/16 05:18 AST 26 IU/L (10-42) 11/03/16 05:18 ALT 25 IU/L (10-60) 11/03/16 05:18 Alkaline Phosphatase 109 IU/L (42-121) 11/03/16 05:18 Total Protein 6.0 g/dL (6.7-8.2) L 11/03/16 05:18 Albumin 3.3 g/dL (3.2-5.5) 11/03/16 05:18 Globulin 2.7 g/dL (2.1-4.2) 11/03/16 05:18 Albumin/Globulin Ratio 1.2 (1.0-2.2) 11/03/16 05:18 Lipase 26 U/L (22-51) 11/01/16 20:20
[2016-11-03] MEDS: MAGNESIUM OXIDE 400 MG TABLET PO SCH ×2 (08:57→21:10)
[2016-11-03] MEDS: POLYETHYLENE GLYCOL 3350 17 GM PACKET PO SCH (08:58)
[2016-11-03] MEDS: ENOXAPARIN 40 MG/0.4 ML SYRINGE SUBQ SCH (08:58)
[2016-11-03] MEDS ORDERED: HYDROmorphone 1 MG/ML SYRINGE IVP PRN (10:16)
[2016-11-03] MEDS: LIDOCAINE PATCH 5% TOP PRN (11:02)
[2016-11-03] MEDS: IBUPROFEN 600 MG TABLET PO PRN (17:22)
[2016-11-03] MEDS: SODIUM CHLORIDE FLUSH 0.9% 10 ML SYRINGE IVP PRN (18:33)
[2016-11-03] MEDS: traZODone 50 MG TABLET PO SCH (21:08)
[2016-11-03] MEDS: ATORVASTATIN 10 MG TABLET PO SCH (21:09)
[2016-11-03] MEDS: ZOLPIDEM 5 MG TABLET PO PRN (21:10)
[2016-11-04] MEDS: ACETAMINOPHEN 1,000 MG/100 ML 100 ML IV SCH ×4 (00:25→18:52)
[2016-11-04] MEDS: SODIUM CHLORIDE FLUSH 0.9% 10 ML SYRINGE IVP PRN ×2 (00:26→16:40)
[2016-11-04] MEDS: IBUPROFEN 600 MG TABLET PO PRN ×4 (00:33→23:51)
[2016-11-04] MEDS: oxyCODONE 5 MG TABLET PO PRN ×4 (05:45→21:06)
[2016-11-04] MEDS: SODIUM CHLORIDE FLUSH 0.9% 10 ML SYRINGE IVP SCH ×3 (05:46→22:13)
[2016-11-04] MEDS: PANTOPRAZOLE 40 MG TABLET PO SCH (05:46)
[2016-11-04] MEDS: diazePAM 5 MG TABLET PO PRN ×3 (05:46→21:09)
[2016-11-04] MEDS: DOCUSATE SODIUM 250 MG CAPSULE PO SCH (08:52)
[2016-11-04] MEDS: MAGNESIUM OXIDE 400 MG TABLET PO SCH ×2 (08:52→21:08)
[2016-11-04] MEDS: ENOXAPARIN 40 MG/0.4 ML SYRINGE SUBQ SCH (08:52)
[2016-11-04] MEDS: POLYETHYLENE GLYCOL 3350 17 GM PACKET PO SCH (08:53)
[2016-11-04] MEDS: SENNA 8.6 MG TABLET PO SCH (08:53)
[2016-11-04] MEDS: LIDOCAINE PATCH 5% TOP PRN (08:53)
--- NOTE | 2016-11-04 17:05 | PROVIDER PROGRESS NOTE ---
Assessment/Plan - Problem List (1) Compression fx, thoracic spine Qualifiers: Encounter type: initial encounter Fracture type: closed Qualified Code(s) : S22.000A - Wedge compression fracture of unspecified thoracic vertebra, initial encounter for closed fracture Assessment/Plan: He has not had any neurological Sx. He has a lot of plain (2) Hemothorax on left Assessment/Plan: This has resolved. (3) Multiple rib fractures Qualifiers: Encounter type: initial encounter Fracture type: closed Laterality: bilateral Qualified Code(s): S22.43XA - Multiple fractures of ribs, bilateral , initial encounter for closed fracture Assessment/Plan: He has a lot of pain with the three rib fractures. He is using the IS and the pickle He has clear lungs at this point. - Current Meds Current Meds: Current Medications Generic Name Dose Route Start Last Admin Trade Name Freq PRN Reason Stop Dose Admin Atorvastatin Calcium 10 mg 11/02/16 21:00 11/03/16 21:09 Lipitor PO 10 mg QPM DALTON Administration Bacitracin 1 packet 11/01/16 22:02 11/01/16 22:50 Bacitracin TOP 3 packet PRN PRN Administration Skin Care Diazepam 5 mg 11/01/16 20:35 11/04/16 14:11 Valium PO 5 mg Q6H PRN Administration Muscle spasms Docusate Sodium 250 - 500 mg 11/04/16 09:00 11/04/16 08:52 Colace 250mg Capsule PO 250 mg DAILY DALTON Administration Enoxaparin Sodium 40 mg 11/02/16 09:00 11/04/16 08:52 Lovenox SUBQ 40 mg DAILY DALTON Administration Acetaminophen 100 mls @ 400 mls/hr 11/02/16 18:00 11/04/16 12:48 Ofirmev IV 400 mls/hr Q6H DALTON Administration Ibuprofen 600 mg 11/01/16 20:35 11/04/16 16:36 Motrin PO 600 mg Q6HR PRN Administration Pain 1 to 4 Lidocaine 1 patch 11/03/16 10:50 11/04/16 08:53 Lidoderm Patch TOP 1 patch DAILY PRN Administration PAIN Magnesium Oxide 400 mg 11/02/16 21:00 11/04/16 08:52 Mag Ox PO 400 mg BID DALTON Administration Ondansetron HCl 4 mg 11/01/16 20:35 11/02/16 07:33 Zofran Inj IVP 4 mg Q6HR PRN Administration Nausea / Vomiting Oxycodone HCl 5 mg 11/01/16 20:35 11/03/16 22:54 Roxicodone PO 5 mg Q4HR PRN Administration Pain 5 to 7 Oxycodone HCl 10 mg 11/03/16 10:17 11/04/16 16:39 Roxicodone PO 10 mg Q3HR PRN Administration Pain 8 to 10 Pantoprazole Sodium 40 mg 11/02/16 07:00 11/04/16 05:46 Protonix PO 40 mg QDAC DALTON Administration Polyethylene Glycol 17 gm 11/02/16 09:00 11/04/16 08:53 Miralax PO 17 gm DAILY DALTON Administration Senna 8.6 - 17.2 mg 11/04/16 09:00 11/04/16 08:53 Senokot PO 8.6 mg DAILY DALTON Administration Sodium Chloride 10 ml 11/01/16 20:35 11/04/16 16:40 Normal Saline Flush 0.9% IVP 10 ml PRN PRN Administration NEEDED PER PROVIDER ORDERS Sodium Chloride 10 ml 11/01/16 22:00 11/04/16 12:47 Normal Saline Flush 0.9% IVP 10 ml Q8HR DALTON Administration Trazodone HCl 150 mg 11/02/16 21:00 11/03/16 21:08 Desyrel PO 150 mg QPM DALTON Administration Zolpidem Tartrate 5 mg 11/01/16 20:35 11/03/16 21:10 Ambien PO 5 mg QPM PRN Administration Insomnia - Lab Result Fish Bone Diagrams: 11/03/16 05:18 11/03/16 05:18 - Additional Planning My Orders: My Active Orders 11/04/16 09:00 Docusate Sodium 250Mg Capsule [Colace 250Mg Capsule] 250 - 500 mg PO DAILY Senna [Senokot] 8.6 - 17.2 mg PO DAILY Subjective - Subjective Patient Reports: Feeling Better, Pain Nursing Reports: Pain Objective Vital Signs: Vital Signs - 24 hr 11/03/16 11/04/16 11/04/16 21:00 00:31 05:00 Temperature 36.7 C 36.9 C 36.6 C Heart Rate [ 68 58 L 61 Brachial] Respiratory 18 16 16 Rate Blood Pressure 111/67 123/75 135/80 H [Left Brachial artery] O2 Saturation 95 95 96 11/04/16 11/04/16 07:56 11:48 Temperature 36.5 C 36.5 C Heart Rate [ 62 59 L Brachial] Respiratory 18 16 Rate Blood Pressure 159/90 H 115/74 [Left Brachial artery] O2 Saturation 97 93 Oxygen O2 Source Room air I&O (Last 24 Hrs): Intake and Output Totals x24h 11/02/16 11/03/16 11/04/16 23:59 23:59 23:59 Intake Total 1170 1300 1312 Output Total 360 1250 775 Balance 810 50 537 General: Alert, Oriented x3, Cooperative, No acute distress HEENT: PERRLA, EOMI Neck: Supple, No JVD, No thyromegaly Neuro: Alert, Oriented Times 3 Cardiovascular: Regular rate, No murmurs Respiratory: Chest non-tender, Breath sounds nml Abdomen: Normal bowel sounds, Soft, No tenderness Skin: No rashes, No breakdown - Results Results: Laboratory Results WBC 9.6 x10^3/uL (4.8-10.8) 11/03/16 05:18 RBC 4.35 10^6/uL (4.70-6.10) L 11/03/16 05:18 Hgb 12.8 g/dL (14.0-18.0) L 11/03/16 05:18 Hct 37.6 % (42.0-52.0) L 11/03/16 05:18 MCV 86.6 fL (80.0-94.0) 11/03/16 05:18 MCH 29.3 pg (27.0-31.0) 11/03/16 05:18 MCHC 33.9 g/dL (32.0-36.0) 11/03/16 05:18 RDW 13.7 % (12.0-15.0) 11/03/16 05:18 Plt Count 150 10^3/uL (130-450) 11/03/16 05:18 MPV 8.5 fL (7.4-11.4) 11/03/16 05:18 Neut # 5.8 10^3/uL (1.5-6.6) 11/03/16 05:18 Lymph # 1.9 10^3/uL (1.5-3.5) 11/03/16 05:18 [place] # 1.5 10^3/uL (0.0-1.0) H 11/03/16 05:18 Eos # 0.3 10^3/uL (0.0-0.7) 11/03/16 05:18 Baso # 0.0 10^3/uL (0.0-0.1) 11/03/16 05:18 Absolute Nucleated RBC 0.00 x10^3/uL 11/03/16 05:18 Nucleated RBCs 0.0 /100WBC 11/03/16 05:18 PT 11.4 secs (9.9-12.6) 11/01/16 20:20 INR 1.0 (0.8-1.2) 11/01/16 20:20 Sodium 140 mmol/L (135-145) 11/03/16 05:18 Potassium 3.5 mmol/L (3.5-5.0) 11/03/16 05:18 Chloride 108 mmol/L (101-111) 11/03/16 05:18 Carbon Dioxide 27 mmol/L (21-32) 11/03/16 05:18 Anion Gap 5.0 (6-13) L 11/03/16 05:18 BUN 21 mg/dL (6-20) H 11/03/16 05:18 Creatinine 1.0 mg/dL (0.6-1.2) 11/03/16 05:18 Estimated GFR (MDRD) 74 (>89) L 11/03/16 05:18 Glucose 127 mg/dL (70-100) H 11/03/16 05:18 Calcium 8.3 mg/dL (8.5-10.3) L 11/03/16 05:18 Total Bilirubin 0.6 mg/dL (0.2-1.0) 11/03/16 05:18 AST 26 IU/L (10-42) 11/03/16 05:18 ALT 25 IU/L (10-60) 11/03/16 05:18 Alkaline Phosphatase 109 IU/L (42-121) 11/03/16 05:18 Total Protein 6.0 g/dL (6.7-8.2) L 11/03/16 05:18 Albumin 3.3 g/dL (3.2-5.5) 11/03/16 05:18 Globulin 2.7 g/dL (2.1-4.2) 11/03/16 05:18 Albumin/Globulin Ratio 1.2 (1.0-2.2) 11/03/16 05:18 Lipase 26 U/L (22-51) 11/01/16 20:20
[2016-11-04] MEDS: ATORVASTATIN 10 MG TABLET PO SCH (21:09)
[2016-11-04] MEDS: traZODone 50 MG TABLET PO SCH (21:09)
[2016-11-05] MEDS ORDERED: MAGNESIUM HYDROXIDE 2,400 MG/30 ML UDC PO SCH (03:30)
[2016-11-05] MEDS: diazePAM 5 MG TABLET PO PRN (04:12)
[2016-11-05] MEDS: oxyCODONE 5 MG TABLET PO PRN ×3 (04:12→11:08)
[2016-11-05] MEDS: IBUPROFEN 600 MG TABLET PO PRN (06:44)
[2016-11-05] MEDS: SODIUM CHLORIDE FLUSH 0.9% 10 ML SYRINGE IVP SCH (06:44)
[2016-11-05] MEDS: PANTOPRAZOLE 40 MG TABLET PO SCH (06:44)
[2016-11-05] MEDS: DOCUSATE SODIUM 250 MG CAPSULE PO SCH (08:30)
[2016-11-05] MEDS: LIDOCAINE PATCH 5% TOP PRN (08:31)
[2016-11-05] MEDS: SENNA 8.6 MG TABLET PO SCH (08:31)
[2016-11-05] MEDS: MAGNESIUM OXIDE 400 MG TABLET PO SCH (08:31)
[2016-11-05] MEDS: ENOXAPARIN 40 MG/0.4 ML SYRINGE SUBQ SCH (08:31)
[2016-11-05] MEDS: POLYETHYLENE GLYCOL 3350 17 GM PACKET PO SCH (08:33)
[2016-11-05 08:41] VITALS: BP 125/82
--- NOTE | 2016-11-05 10:37 | Discharge Plan ---
Discharge Plan Disposition: Home, Self Care Condition: Good Prescriptions: oxyCODONE [Roxicodone] 10 mg PO Q4HR PRN #40 tablet PRN Reason: Pain 8 to 10 diazePAM [Valium] 5 mg PO Q6H PRN #35 tablet PRN Reason: Muscle spasms Diet: Regular Activity Restrictions: Activity as Tolerated Shower Restrictions: No Driving Restrictions: Yes (clearance by PCP) Weight Bearing: Full Weight Additional Instructions or Follow Up instructions: Stretch both legs for at least 30 seconds twice a day. Take meds or what ever is needed to avoid constipation. Folllow up with your PCP in the next week. Thank you, Dr. Garo Schaeffer Smoking: If you smoke, Please STOP! Call for help. Follow-up with: Belkis Benton ARNP, TURNING MACHINE OPERATOR-BC [Physician No Access] - 1 Week
--- NOTE | 2016-11-06 07:44 | DISCHARGE SUMMARY ---
DATE OF ADMISSION: 11/02/2016 DATE OF DISCHARGE: 11/05/2016 PCP: KEMI Mercer ADMISSION DIAGNOSES 1. Acute T2 and T3 compression fractures secondary to trauma. 2. Multiple rib fractures, acute left posterior and 1st and acute left posterior medial 2nd and 3rd r ib fractures. 3. Occipital scalp laceration. 4. Hemothorax on the left. 5. Pulmonary nodule. 6. Hyperlipidemia. 7. Posttraumatic stress disorder. DISCHARGE DIAGNOSES 1. Compression fractures T2-3 with severe back pain, improved. 2. Multiple rib fractures. 3. Occipital scalp lacerations, status post closure. 4. Pneumothorax on the left, resolved. 5. Pulmonary nodule, left, 4 mm. Recommend outpatient follow up CT. 6. Hyperlipidemia, on statin. 7. Posttraumatic stress disorder without exacerbation. SPECIAL PROCEDURES: Patient had CT of the head, CT of the neck. CT of the head impression 1. No definite infarcts, intracranial hemorrhage, mass, or hydrocephalus. 2. Mild white matter changes. Age indeterminate, but appear chronic. Finding may represent sequelae o f chronic small vessel ischemic disease. If there is concern of acute stroke or symptoms persist, MRI brain without contrast can be considered to evaluate smaller cell infarct. CT of the neck impression 1. No evidence for acute fracture in cervical spine. 2. Mild to moderate degenerative changes. 3. See abnormal findings on CT thoracic spine report. CT of the thoracic spine impression 1. Acute T2, T3 compression fractures involving superior endplate, mild compression. Acute left poste rior medial 1st rib fracture, mildly displaced. Acute left posterior medial 2nd and 3rd rib fractures extending into the costovertebral joints. Small left apex hemothorax associated with a 1st rib fract ure. 2. A couple of tiny right upper lobe pulmonary nodules measuring 4 mm. Recommend 1 year follow up on chest CT to confirm stability. CONSULTATIONS: Kathy Nichols MD. See copy of consultation. HOSPITAL COURSE AND MANAGEMENT: The initial presentation in the hospital emergency department evaluat ion and hospitalist plan well described in history and physical. See copy of same. SUMMARY: The patient is a 70-year-old gentleman, past medical history significant for hyperlipidemia and PTSD, who took a fall while playing tennis and resulting bleeding scalp laceration, neck pain. Th e patient overran the ball and went headfirst into the [employer] fence. He had felt his left hamstri ng give out. The patient was found to have 3 rib fractures, 2 thoracic spine compression fractures, a nd small left hemothorax and was therefore admitted to the hospital. Patient had continued severe karthik n the next 24 hours. Slowly over the next couple of days, was able to be coaxed out of bed and [facility] ed pain control and received services in the physical therapy department. PHYSICAL EXAMINATION VITAL SIGNS: On the day of discharge, temperature 36.4, 62, 125/62, 60, 96% room air sat. HEENT: The patient's eyes, EOM within normal limits, PERRL. nonicteric. Mouth and throat: moist muco us membranes, no other pathology, mouth, pharynx. NECK: Has some stiffness in the back of the neck. No thyromegaly. No lymphadenopathy. No JVD. CHEST WALL: Tender left side upper chest, symmetric. HEART: Normal sinus rhythm. No murmur. LUNGS: Clear to auscultation. ABDOMEN: Soft, nontender. Normal bowel sounds. No hepatosplenomegaly. RECTAL/GENITALIA: Not done. EXTREMITIES: Patient has point tenderness at the origin of the biceps femoralis muscles on the left l ower extremity. NEURO: Cognitive intact. Cranial nerves intact. Motor intact. VASCULAR: Has normal posterior tibial pulses bilaterally. Normal capillary refill. LABORATORY: The patient had a white count of 9.6, 12 and 37 hemoglobin and hematocrit, and sodium was 140, potassium 3.5, chloride is 108, CO2 of 27, BUN 21, creatinine 1.0. The patient's glucose is 127 . Calcium 8.3. Albumin is 3.3. Normal liver enzymes. ALLERGIES: NO KNOWN ALLERGIES. DISPOSITION: He was discharged home. DISCHARGE MEDICATIONS 1. Trazodone 150 mg q. p.m. 2. Simvastatin 10 mg a day. 3. Zantac 150 mg daily. 4. Oxycodone 10 mg every 3-4 hours if needed for severe pain. 5. Valium 5 mg q.6 hours p.r.n. 6. Senokot 1-2 tabs daily. 7. Magnesium oxide 200 mg b.i.d. 8. Lidoderm patch q.12 hours p.r.n. pain, back or legs. The patient is to follow up with Belkis Benton in the next week and suggested to get continued phy sical therapy. JOB #: [id number] EXT JOB #:[id number]
== END 2016-11-05 11:31 | disposition home or self-care (01) | DRG 551 ==
LOC: EDBD → ED 17:32 → MS 20:35 → OBSVTOIN 11-02 10:51 → MS 11-02 10:58
PROVIDERS: ADMIT Internal Medicine; ATTEND Internal Medicine
DX: S22.029A Unspecified fracture of second thoracic vertebra, initial encounter for closed fracture (principal); S27.1XXA Traumatic hemothorax, initial encounter; S22.42XA Multiple fractures of ribs, left side, initial encounter for closed fracture; S22.039A Unspecified fracture of third thoracic vertebra, initial encounter for closed fracture; S01.01XA Laceration without foreign body of scalp, initial encounter; E78.5 Hyperlipidemia, unspecified; F43.10 Post-traumatic stress disorder, unspecified; R91.8 Other nonspecific abnormal finding of lung field; W18.09XA Striking against other object with subsequent fall, initial encounter; Y93.73 Activity, racquet and hand sports; Y92.312 Tennis court as the place of occurrence of the external cause; Y99.8 Other external cause status; Z87.891 Personal history of nicotine dependence; Z79.899 Other long term (current) drug therapy
CPT/HCPCS: 12004; 36415; 70450; 71020; 72125; 72128; 80053; 83690; 85025; 85610; 96360; 96372; 96375; 96376; 99283; 99284

== ENCOUNTER 2017-07-08 07:18 | Outpatient (CLI) | payer OTHER, MEDICARE ==
--- NOTE | 2017-07-11 10:12 | Ultrasound Report ---
AORTA SCREENIN07/08/2017 CLINICAL INDICATION: Smoking history. TECHNIQUE: Real-time sonographic images were performed by the freedom of information officer through the aorta. Multiple leather goods sales representative static images were saved for review. FINDINGS: The abdominal aorta is normal in caliber, measuring 2.8 cm proximally, 2.1 cm in the mid portion, and 2.3 cm distally. The iliacs are normal in caliber. No free fluid is present. IMPRESSION: NO EVIDENCE OF ABDOMINAL AORTIC ANEURYSM. TD: 07/08/2017 13:08
== END 2017-07-08 07:19 | disposition home or self-care (01) ==
LOC: DI 07:18
PROVIDERS: ATTEND Nurse Practitioner Adult Health
DX: Z13.6 Encounter for screening for cardiovascular disorders (principal)
CPT/HCPCS: 76706

== ENCOUNTER 2018-03-20 11:24 | Outpatient (CLI) | payer OTHER, MEDICARE | END 2018-03-20 11:25 | disposition home or self-care (01) | LOC: SC 11:24 | PROVIDERS: ATTEND Internal Medicine Pulmonary Disease | DX: G47.10 Hypersomnia, unspecified (principal); G47.8 Other sleep disorders; R06.83 Snoring; R06.89 Other abnormalities of breathing; R09.89 Other specified symptoms and signs involving the circulatory and respiratory systems | CPT/HCPCS: 99203; 99212 ==

== ENCOUNTER 2018-05-05 21:52 | Outpatient (CLI) | payer OTHER, MEDICARE | END 2018-05-05 21:53 | disposition home or self-care (01) | LOC: SC 21:52 | PROVIDERS: ATTEND Internal Medicine Pulmonary Disease | DX: G47.33 Obstructive sleep apnea (adult) (pediatric) (principal); G47.61 Periodic limb movement disorder | CPT/HCPCS: 95810 ==

== ENCOUNTER 2018-06-12 14:37 | Outpatient (CLI) | payer OTHER, MEDICARE | END 2018-06-12 14:38 | disposition home or self-care (01) | LOC: SC 14:37 | PROVIDERS: ATTEND Nurse Practitioner Family | DX: G47.33 Obstructive sleep apnea (adult) (pediatric) (principal); G47.61 Periodic limb movement disorder | CPT/HCPCS: 99212; 99215 ==

== ENCOUNTER 2021-06-01 07:03 | Outpatient (CLI) | payer MEDICARE, OTHER ==
--- NOTE | 2021-06-01 10:19 | CT Report ---
PROCEDURE: CHEST WO INDICATIONS: PULMONARY NODULE TECHNIQUE: Noncontrast 1mm axial images were acquired from the pulmonary apices to the posterior costophrenic an gles. Axial 5 mm soft tissue kernel reconstructions were performed as well as 8 mm axial MIP and cor onal and sagittal 5 mm reformations. For radiation dose reduction, the following was used: automate d exposure control, adjustment of mA and/or kV according to patient size. COMPARISON: Chest x-ray 11/02/[address] scans are available for comparison. An addendum can be done if and when these are located. FINDINGS: Image quality: Excellent. Lungs and pleura: Right apical lung nodule measures 4 mm, 4/40. 3 mm right upper lobe lung nodule, 4 /54, and 4 mm nodule, 4/60 are present. Flat nodular juxta fissural opacity is present, 4/144. Part s olid lateral left lower lobe nodule measures 5 mm, 4/187. Juxta fissural nodule associated with the l eft major fissure at a midlung level measures about 5 mm, 4/138. A 4 mm lateral left upper lobe nodul e at the level of the jack, 4/108 is present. No other lung nodules. No acute air space opacities. No pleural effusions or pneumothorax. Central and peripheral airways are patent and normal in caliber. Mediastinum: Heart size is normal. No pericardial effusion. Mild coronary artery calcification. No mediastinal adenopathy by size criteria. Thoracic aorta and central pulmonary arteries are normal i n size. Esophagus is normal in caliber. No hiatal hernia. Bones and chest wall: No suspicious bony lesions. There is a central endplate depression with modera te height loss involving the T3 vertebral body. Degenerative endplate changes elsewhere throughout th e thoracic spine. No axillary or supraclavicular adenopathy by size criteria. The thyroid is normal in size and there are no incidental findings. Abdomen: The gallbladder is decompressed. Unenhanced upper abdominal organs are normal. There is a p artially imaged anastomotic staple line in the right upper quadrant. Mild abdominal aortic calcificat ion. IMPRESSION: 1. Several lung nodules bilaterally measuring 5 mm and less. Without prior CT imaging available, surv eillance is recommended. An addendum can be generated if prior study becomes available and these nodu les, if stable, could be declared benign. 2. T3 vertebral body fracture of uncertain chronicity. 3. Mild coronary artery disease. Reviewed by: Jenni Rodríguez MD on 06/01/2021 10:17 AM PST Approved by: Jenni Rodríguez MD on 06/01/2021 10:17 AM [facility] Station ID: [id number]
== END 2021-06-01 07:04 | disposition home or self-care (01) ==
LOC: DI 07:03
PROVIDERS: ATTEND Nurse Practitioner Acute Care
DX: R91.8 Other nonspecific abnormal finding of lung field (principal); M48.54XA Collapsed vertebra, not elsewhere classified, thoracic region, initial encounter for fracture; I25.10 Atherosclerotic heart disease of native coronary artery without angina pectoris